=== PATIENT | male | born 1975 | race African-American/Black ===

== ENCOUNTER 2017-01-23 06:42 | Day surgery (SDC) | payer BC ==
[2017-01-20 10:05] VITALS: BMI 38.7
[2017-01-23] MEDS ORDERED: Midazolam HCl 2 mg/2 ml Vial ONE (08:48)
[2017-01-23] MEDS ORDERED: CEFAZOLIN/Water 2 GM/20 ML SYRINGE ONE (08:49)
[2017-01-23 09:13] LABS: #Eosinphils 0.1 thou/uL (0.0-0.7); #Lymphocytes 1.9 thou/uL (1.20-3.40); #Monocytes 0.7 thou/uL (0.11-0.59); #Neutrophils 3.6 thou/uL (1.40-6.50); %Basophils 0.8 % (0.0-1.0); %Eosinophils 1.6 % (0.0-10.0); Mean Platelet Volume 8.7 fL (7.4-10.4); Red Blood Cell (RBC) Count 5.27 mill/uL (4.70-6.10); White Blood Cell (WBC) Count 6.4 thou/uL (4.8-10.8)
[2017-01-23 09:31] LABS: Anion Gap 15 mmol/L (10-20); BUN (Urea Nitrogen) 12 mg/dL (8.9-20.6); Calc. Creatinine Clearance 167 mL/min (70-130); Calcium 9.3 mg/dL (7.8-10.44); Carbon Dioxide 24 mmol/L (22-29); Chloride 107 mmol/L (98-107); Estimated GFR-MDRD Greater than 90
[2017-01-23] MEDS ORDERED: Fentanyl 250 MCG/5 ML VIAL ONE (10:00)
[2017-01-23] MEDS ORDERED: Fentanyl 100 MCG/2 ML VIAL ONE (10:15)
[2017-01-23] MEDS ORDERED: Glycopyrrolate 0.2 MG/ML 5 ML SYRINGE ONE (10:28)
[2017-01-23] MEDS ORDERED: PHENYLEPHRINE-NS 100 MCG/ML 10 ML SYRINGE ONE (10:28)
[2017-01-23] MEDS ORDERED: Propofol 200 MG/20 ML VIAL ONE (10:28)
[2017-01-23] MEDS ORDERED: Ketorolac Tromethamine 30 MG/ML VIAL ONE (10:28)
[2017-01-23] MEDS ORDERED: Lidocaine 2% PF 10 ML AMP (For Epidural Use) ONE (10:28)
[2017-01-23] MEDS ORDERED: Ondansetron HCl/PF 4 MG/2 ML Vial ONE (10:28)
[2017-01-23] MEDS ORDERED: Dexamethasone 20 MG/5 ML VIAL ONE (10:28)
[2017-01-23] MEDS ORDERED: Albuterol Sulfate HFA (OR ONLY) ONE (10:41)
--- NOTE | 2017-01-23 12:14 | OP ---
DATE OF PROCEDURE: 01/23/2017 SURGEON: Duane Mohr M.D. [employer] SUPPORT SPECIALIST: Leatha Colvin PROCEDURE: Left L5-S1 discectomy. PROCEDURE IN DETAIL: The patient was brought into the operating room, intubated. He was rolled in t he prone position on gel-filled chest rolls. Incision made exposing L5 and S1 on the left and our le hernan was confirmed by x-ray. We performed left L5-S1 hemilaminectomy, identified the left S1 nerve ro ot and beneath it a bulging disc herniation. This was incised and debrided in multiple fragments. E pidural venous bleeding was controlled with Gelfoam. The wound was extensively irrigated, immaculate hemostasis was secured. Vancomycin powder was applied and the wound was closed in anatomic layers.
[2017-01-23] MEDS ORDERED: HYDROcodone/Acetaminophen 10/325 mg Tablet ONE (13:49)
== END 2017-01-23 14:19 | disposition home or self-care (01) ==
LOC: SDC 06:42
PROVIDERS: ATTEND Neurological Surgery
PROC: 0ST20ZZ Resection of Lumbar Vertebral Disc, Open Approach (ICD-10-PCS; principal; 2017-01-23)
PROC: 01NB0ZZ Release Lumbar Nerve, Open Approach (ICD-10-PCS; principal; 2017-01-23)
DX: M51.17 Intervertebral disc disorders with radiculopathy, lumbosacral region (principal); I10 Essential (primary) hypertension; E78.5 Hyperlipidemia, unspecified; E11.9 Type 2 diabetes mellitus without complications; M10.9 Gout, unspecified; Z79.84 Long term (current) use of oral hypoglycemic drugs; Z79.899 Other long term (current) drug therapy; Z88.6 Allergy status to analgesic agent; Z88.1 Allergy status to other antibiotic agents; Z98.1 Arthrodesis status; Z90.89 Acquired absence of other organs; Z98.818 Other dental procedure status; Z98.890 Other specified postprocedural states
CPT/HCPCS: 36416; 76001; 80048; 85025; 93005; 93010; J1100; J1885; J2001; J2250; J2405; J2704; J3010; J3370